=== PATIENT | male | born 1950 | race Caucasian/White ===

== ENCOUNTER 2019-07-25 13:45 | Observation (INO) | payer BC, MEDICARE ==
[2019-07-25] MEDS ORDERED: Sodium Chloride 0.9% 10 ML Syringe FLUSH PRN (14:17)
[2019-07-25] MEDS ORDERED: Acetaminophen 325 MG Tab PO PRN (15:04)
--- NOTE | 2019-07-25 18:10 | HP ---
Admission History and Physical and Emergency Room Note REASON FOR ADMISSION: Weakness, lightheadedness, and history of cardiac disease. 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 He felt somewhat weak and noticed some numbness and tingling about his fingers and toes. This was somewhat reminiscent of symptoms he had prior to his myocardial infarction he experienced in 2010. In review of records from that incident, he certainly had more than just that as he came in with profuse diuresis and chest discomfort along with the above- mentioned symptoms. He subsequently had episodes of ventricular tachycardia and complete heart block and ultimately was shipped down to [place] whereupon was ultimately transferred, whereupon he underwent stenting of 2 coronary artery occlusions. Subsequent to that, he has done very well. This morning, after experiencing these symptoms and because they heralded the onset of his myocardial infarction in 2010, he decided to come to the ER and have it evaluated. He does not have any chest pain. He denies any diaphoresis, nausea, or vomiting. He denies any arm pain or neck pain. He does have some vague tingling about his toes, but this is a chronic issue that he has attributed to chronic venous insufficiency due to varicose vein disease. He also experiences, however, some tingling about his fingertips. He admits that this caused him a considerable amount of anxiety. PAST MEDICAL HISTORY: 1. He has a history of sleep apnea, but only treats it with oxygen at night because he has demonstrated desaturation at times. He could not tolerate the CPAP mask evidently. 2. Coronary artery disease with stenting in 2010 as described above. 3. Venous insufficiency and varicose veins. 4. Negative colonoscopy. 5. No history of hypertension. 6. No history of hypercholesterolemia. 7. No history of diabetes. 8. Nonsmoking. MEDICATIONS: Only aspirin. ALLERGIES: NONE TO MEDICATIONS. REVIEW OF SYSTEMS: Pertinent positives and negatives as listed in the HPI. PHYSICAL EXAMINATION: GENERAL: He is not diaphoretic. He is calm, in no acute distress. Shortly after his arrival, his symptoms seem to be lessened somewhat, particularly the weakness and lightheadedness. VITAL SIGNS: His blood pressure was 161/85. He did not have a significant orthostatic drop. Respiratory rate 18, O2 sats 98% to 100% on room air. He is afebrile. HEENT: Head is normocephalic. No conjunctivitis. No scleral icterus. TMs are normal. Oropharynx is normal. NECK: Supple. No adenopathy. No JVD is noted. No bruits. CHEST: Clear to auscultation with good air exchange bilaterally. CARDIAC: Regular rate without murmur. No rub was appreciated. ABDOMEN: Obese, soft, nontender. No hepatosplenomegaly. EXTREMITIES: He has some venous stasis changes about both ankles and some mild edema. Varicosities about the ankle were noted. He also has spider varicosities. Pulses are normal. Toes are pink and warm. NEUROLOGIC: He moves all 4 extremities equally well. Strength, bulk, and tone are normal. Cranial nerves 2 through 12 are intact. Deep tendon reflexes were not tested. Sensory examination is normal to crude touch. Station and gait were not tested. LABORATORY DATA: His CBC shows a mild anemia with a hemoglobin 12.6. His WBCs are normal at 7.9. His CMP was normal except a borderline elevation of glucose at 107 (nonfasting). His troponin was normal at less than 0.017. A 12-lead EKG shows a possible old inferior wall SC. No acute changes. I did compare to his previous tracings and see no significant changes of concern. A chest x-ray was obtained. It does show some mild cardiomegaly, otherwise unremarkable with no acute changes or infiltrates. IMPRESSION: Weakness and lightheadedness with the above-mentioned cardiac history. PLAN: I reviewed several options with him. I thought the most cautious one and the most sensible 1 would be to admit him and observe him with serial troponins and EKGs overnight. I do not have a high index of suspicion that he is experiencing is a myocardial ischemia, but we will go ahead and monitor him here overnight in light of his past history and his past presentation. All questions were answered. He understands and agrees with this plan. If all goes well, he should be able to be discharged tomorrow morning. VIKTOR/YVES
[2019-07-26 10:47] VITALS: BP 135/82; PULSE 82
--- NOTE | 2019-07-26 14:18 | CR ---
Date of Service: 07/25/19 Clinical Data: Chest Pain PA AND LATERAL CHEST: No priors. The heart size is within normal limits. The aorta is calcified and ectatic. The lungs are mildly hyperexpanded. No pneumothorax. No pleural effusions. No evidence of acute intrathoracic disease. [id number] [facility]
--- NOTE | 2019-07-26 19:35 | DISCH ---
ADMISSION DIAGNOSES: Weakness, lightheadedness, and tingling with past history of myocardial infarction. DISCHARGE DIAGNOSIS: No evidence for myocardial infarction, symptoms resolved. 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 The reason that he states that these symptoms were part of a symptom complex he experienced back in 2010 when he was seen here and subsequently diagnosed with a myocardial infarction. At that time, he had more than just the above-mentioned symptom, rather he had episodes of complete heart block and ventricular fibrillation requiring an aggressive interventional moves and try an urgent transfer to [place] whereupon he subsequently underwent heart catheterization and stenting. He has since then done very well, but has not been seen in followup by a provider for the past several years. Yesterday's symptoms were alarming to him as they were part of the symptoms he experienced when he had his cardiac event several years ago. PAST HISTORY MEDICATIONS: Listed in the electronic medical record. MEDICATIONS: Listed in the electronic medical record. HOSPITAL COURSE: His CMP did not show any significant abnormalities. He did have a mild borderline elevated glucose at 107, but this was nonfasting. His CBC was unremarkable except he has a mild borderline anemia with a hemoglobin of 12.6. His troponin 1 was less than 0.017. We made 3 subsequent troponin determinations and they remained negative. EKG showed evidence of an old myocardial infarction, but no definite acute changes. These were repeated as well with no changes noted. He was kept on a monitored bed with telemetry and he did not have any rhythm disturbances that were noteworthy, his vitals remained stable. He did not have any demonstrable orthostatic-type changes. By today, his symptoms have completely resolved. We had a long detailed discussion regarding the important factors. 1. Desire for weight reduction. 2. Desire to pursue an exercise program. 3. Importance of followup with a regularly established provider. 4. Possible referral to a anger control counselor. The first step in this whole process will be for him to be to establish care with a provider that can help him with his healthcare maintenance issues. We talked about the importance of being sensible and pursuing an exercise program as well as diet and other lifestyle types of changes. I could not offer him a definite explanation as to why he was feeling the symptoms he experienced yesterday, but I think followup with his provider is the best option at this juncture. All questions were answered. He agrees with this plan. TRISTIAN /[id number]
== END 2019-07-26 10:30 | disposition home or self-care (01) ==
LOC: LB.ED 13:45 → LB.MS 15:00 → UNDOADMOB 15:00 → LB.MS 15:04 → UNDODISOB 07-26 10:30
PROVIDERS: ADMIT Surgery; ATTEND Surgery
DX: R53.1 Weakness (principal); R42 Dizziness and giddiness; R20.2 Paresthesia of skin; D64.9 Anemia, unspecified; I25.10 Atherosclerotic heart disease of native coronary artery without angina pectoris; I25.2 Old myocardial infarction; I83.10 Varicose veins of unspecified lower extremity with inflammation; I49.01 Ventricular fibrillation; I44.2 Atrioventricular block, complete; Z95.5 Presence of coronary angioplasty implant and graft; Z79.82 Long term (current) use of aspirin
CPT/HCPCS: 36415; 71046; 80053; 84484; 85025; 93005; G0378